=== PATIENT | female | born 1965 ===

== ENCOUNTER 2024-02-29 06:34 | Observation (INO) ==
--- NOTE | 2024-02-01 11:48 | PAT Medication Instructions ---
Medication Instructions Date of Service February 01, 2024 Home Medications alprazolam 1 mg tablet 1 mg PO HS cetirizine 10 mg capsule (Zyrtec) 10 mg PO DAILY PRN Allergy Symptoms levothyroxine 175 mcg tablet 175 mcg PO QAM pravastatin 20 mg tablet 20 mg PO HS DO NOT take the morning of surgery cetirizine 10 mg capsule (Zyrtec) 10 mg PO DAILY PRN Allergy Symptoms Take morning of surgery With a small sip of water, OTHERWISE NOTHING TO EAT OR DRINK AFTER MIDNIGHT: levothyroxine 175 mcg tablet 175 mcg PO QAM Take evening before surgery alprazolam 1 mg tablet 1 mg PO HS cetirizine 10 mg capsule (Zyrtec) 10 mg PO DAILY PRN Allergy Symptoms (if needed) pravastatin 20 mg tablet 20 mg PO HS Other Notes If you have any questions please call us at [phone] or [phone] or [phone] or [phone]
--- NOTE | 2024-02-02 14:13 | Anesthesiology Consultation ---
Date of Service February 02, 2024 Assessment & Plan (1) Encounter for pre-operative examination: - Check BSG AM DOS (glucose elevated at 156 on preop labs. No noted hx of diabetes/prediabetes per patient- will recheck BSG level DOS) - Infectious disease screening: Per assessment on 02/01/24: No known infectious disease contacts or current infectious disease symptoms. No noted recent Covid positive test result. - Outpatient joint assessment: Pt currently scheduled for inpatient pathway. If surgeon requests review for outpatient joint pathway, patient is an acceptable candidate for outpatient joint program from anesthesia standpoint pending surgeon's office assessment that patient is motivated, has good support and completes Same Day Joint Program preop requirements. - Patient acceptable risk for surgery pending surgeon-ordered PCP preop evaluation (Dr. Gaye Amin, appt 02/06). Chart Review Chart Review: Patient seen in Pre Admission Testing Teaching & Discussion Pre-Anesthesia Teaching/Discussion Notes: Instructed NPO after midnight before surgery,except medications with 15 cc of water. Medication instructions provided according to the PAT guidelines. History Surgery Operation Date: 02/29/24 10:20 Proposed Procedures p Left Total Knee Arthroplasty - Dereje Lott MD Height/Weight Height: 5 ft 9 in Weight: 72.7 kg Allergies Allergy/AdvReac Type Severity Reaction Status Date / Time adhesive Allergy Unknown Redness of Verified 02/01/24 11:09 Skin fluconazole [From Diflucan] Allergy Unknown Hives Verified 02/01/24 11:02 nitrofurantoin Allergy Unknown Hives Verified 02/01/24 11:02 [From Macrobid] Sulfa (Sulfonamide Allergy Unknown Rash Verified 02/01/24 11:03 Antibiotics) acetaminophen AdvReac Unknown "skin Verified 02/01/24 11:03 [From Tylenol-Codeine] crawls" codeine AdvReac Unknown "skin Verified 02/01/24 11:03 [From Tylenol-Codeine] crawls" Medications Home Medications Medication Instructions Recorded Confirmed Last Taken alprazolam 1 mg tablet 1 mg PO HS 02/01/24 02/01/24 Unknown cetirizine 10 mg capsule (Zyrtec) 10 mg PO DAILY PRN Allergy Symptoms 02/01/24 02/01/24 Unknown levothyroxine 175 mcg tablet 175 mcg PO QAM 02/01/24 02/01/24 Unknown pravastatin 20 mg tablet 20 mg PO HS 02/01/24 02/01/24 Unknown Past Medical History Medical History Anxiety High cholesterol History of COVID-19 2021- resolved Hypothyroidism Exercise / Class Metabolic Activity II 4-5 Yardwork/Stairs/Walk up hill (one FS: No CP, no SOB) Past Surgical History Surgical History History of medial meniscus repair of right knee Hx of breast biopsy Hx of cholecystectomy Hx of tonsillectomy Hx of tubal ligation Hx of wisdom tooth extraction Nausea and vomiting after administration of anesthetic agent Past Anesthesia History No Family Hx of Anesthesia Complications (Patient adopted- unknown family hx) and Other (Slow to wake) History of PONV No Hx of Motion Sickness and History of PONV (*Dry heaves*) Social History Smoking Status: Never smoker Do You Dip or Chew Tobacco: No Hx Alcohol Use: Yes alcohol intake frequency: holidays/special occasions only Hx Substance Use: No substance use type: does not use Review of Systems Patient denies chest pain, shortness of breath, dyspnea on exertion, fever, chills, cough, wheezing, palpitations. Physical Exam Vital Signs BP 127/87 P 86 TEMP 98.1 SP02 98 RESP 16 Physical Full cervical extension range of motion. Full TMJ range of motion. TMD 3 finger breaths Mallampati Score 2 Dentition: missing molars, + crown Lungs: clear throughout to auscultation Cardiac: regular rate and rhythm, no murmurs noted Spine: normal Carotid arteries: negative bruit Extremities: no LE edema Lab Results Anesthesia Preop Results Results Anesthesia Widget: WBC 6.69 K/ul (4.8-10.8) 02/02/24 Hgb 14.7 g/dl (12.0-16.0) 02/02/24 Hct 43.4 % (37.0-47.0) 02/02/24 Plt 222 K/uL (130-400) 02/02/24 Na 138 mmol/L (136-145) 02/02/24 K 5.0 mmol/L (3.5-5.1) 02/02/24 Cl 102 mmol/L (98-107) 02/02/24 CO2 31 mmol/L (21-32) 02/02/24 BUN 16 mg/dl (6-23) 02/02/24 Creat 0.95 mg/dl (0.6-1.2) 02/02/24 Glucose Level 156 mg/dl (70-99(Fasting)) H 02/02/24 PT 10.9 Seconds (9.0-12.0) 02/02/24 PTT 26 Seconds (21-31) 02/02/24 INR 1.0 (0.9-1.1) 02/02/24 Blood Type A Positive 02/02/24 Antibody Screen NEGATIVE 02/02/24 Testing Laboratory Results TSH (01/19/24) 47.000 [reference range 0.410-4.670] Free T4 (01/19/24) 0.70 [reference range 0.71-1.85] *Patient states that PCP reviewed these labs and contacted her to discuss further. Determined that patient was not taking levothyroxine at correct time of day or with correct food/drink timing. Has since adjusted timing of taking Levothyroxine. No thyroid-related symptoms noted at PAT visit 02/02/24* Electrocardiogram Date: 02/02/24 NSR at 76bpm. "Normal ECG" Chest X-Ray Date: 02/02/24 FINDINGS: PA and lateral chest radiographs are obtained. No prior studies are available for comparison at the time of dictation. The cardiomediastinal silhouette is unremarkable. The lungs and pleural spaces are clear. There is no pneumothorax. The bony thorax appears intact. Cholecystectomy clips are noted in the right upper quadrant. IMPRESSION: No active disease in the chest.
[~2024-02-29 06:34] MED LIST: ROPIVACAINE 0.5% 5 MG/ML 30 ML VIAL ONE
--- NOTE | 2024-02-29 06:55 | History & Physical Bridge Note ---
Date of Service February 29, 2024 History & Physical Bridge Note I have examined the patient, reviewed the History & Physical and in the interval since the performance of the History & Physical I have noted the following changes of clinical significance: no changes noted. no UTI sxs
[2024-02-29] MEDS: LR 500ML BOLUS, THEN 15ML/HR IV SCH (07:05)
[2024-02-29] MEDS ORDERED: KETOROLAC 30 MG/ML VIAL IV PRN (07:07)
[2024-02-29] MEDS ORDERED: ePHEDrine sulfate 50 MG/ML AMP IV PRN (07:07)
[2024-02-29] MEDS ORDERED: PROMETHAZINE HCL 6.25 MG in SODIUM CHLORIDE 0.9% 50 ML IV PRN (07:07)
[2024-02-29] MEDS ORDERED: HYDROmorphone INJ 1 MG/ML SYRINGE IV PRN ×2 (07:07→12:50)
[2024-02-29] MEDS ORDERED: ATROPINE SULFATE 0.1 MG/ML 10ML SYR IV PRN (07:07)
[2024-02-29] MEDS ORDERED: MIDAZOLAM HCL 1 MG/ML 2ML VIAL ONE ×2 (07:08)
[2024-02-29] MEDS: GABAPENTIN 600 MG DOSE PO SCH (07:10)
[2024-02-29] MEDS: oxyCODONE HCL 10 MG TABCR (OxyCONTIN) PO SCH (07:10)
[2024-02-29] MEDS: traMADol HCL 50 MG TABLET PO SCH (07:10)
[2024-02-29] MEDS: ACETAMINOPHEN 500 MG TAB PO SCH ×2 (07:10→21:11)
[2024-02-29] MEDS: METOCLOPRAMIDE HCL 10 MG TABLET PO SCH (07:10)
[2024-02-29] MEDS: FAMOTIDINE 20 MG TAB PO SCH (07:10)
[2024-02-29] MEDS: CeleBREX 200 MG CAP PO SCH (07:11)
[2024-02-29] MEDS: LR 60ML/HR IV SCH (07:11)
[2024-02-29] MEDS: dexAMETHasone**PF** 10 MG/ML VIAL IV SCH (07:12)
[2024-02-29] MEDS ORDERED: BUPIVACAINE 0.5 % 5 MG/1 ML PF 10ML VIAL ONE (07:26)
[2024-02-29] MEDS: TRANEXAMIC ACID / 0.7% NACL 1,000 MG/100 ML BAG IV SCH ×2 (07:32→17:15)
[2024-02-29] MEDS: ceFAZolin 2000MG 2,000 MG/15 ML SYR IV SCH ×2 (08:12→18:33)
[2024-02-29] MEDS ORDERED: PROPOFOL IV EMULSION 10 MG/ML 20 ML VIAL IV ONE ×3 (08:33→09:55)
[2024-02-29] MEDS ORDERED: ONDANSETRON INJ 2 MG/ML 2 ML VIAL ONE (08:33)
[2024-02-29] MEDS: ORTHO JOINT ANESTHETIC ONE (08:56)
--- OUTSIDE RECORDS SUMMARY | 2024-02-29 09:13 | External Medical Summary | Continuity of Care Document ---
Author Name Unknown Organization [place] [id number] Address [address] [place] [id number] Care Team Providers Care Workers' Compensation Claims Examiner Name Role Phone DeionurszulaAnoop Primary Care Physician [phone] Encounter [facility] FINR [id number] Date(s): 02/02/24 - 02/02/[address] [facility] [employer] [address] [place] [id number] [facility] [address] [place] [id number] Encounter Diagnosis Left knee DJD(Discharge Diagnosis) - 02/02/24 S/P total knee arthroplasty(Discharge Diagnosis) - 02/04/24 Discharge Disposition: Home or Self Care Attending Physician: KWAN Cotton, Jessica Damon Referring Physician: MD Oren, Dereje Calderón Allergies, Adverse Reactions, Alerts Substance Reaction Severity Status codeine crawling skin Active sulfa drugs Active Allergy Not found in Search parlodel, pt becomes nause ous Active Medications ALPRAZolam 2 mg oral tablet Start: 07/06/17 16:05:45, 1 tab, PO, bid, Disp# 60 tab, Refills: 5, call or fax to [facility] Start Date: 07/06/17 Status: Ordered levothyroxine 150 mcg (0.15 mg) oral tablet Start: 05/04/16 14:03:04, See Instructions, Disp# 90, Refills: 2, take 1 tablet by mouth once daily, [facility], take 1 tablet by mouth once daily Start Date: 05/04/16 Status: Ordered pravastatin 20 mg oral tablet take 1 tablet by mouth every evening FOR CHOLESTEROL Start Date: 02/02/24 Status: Ordered PriLOSEC 20 mg oral delayed release capsule Start: 01/02/16 17:16:00, 1 cap, PO, Daily, Disp# 30 cap, Refills: 5, Pharmacy: [facility] Start Date: 01/02/16 Status: Ordered Mental Status 02/02/24 Barriers to Learning one year None evide nt Mandatory Health Literacy Documentation Yes Health Literacy Communication Barriers N ever Primary Language Khmer Problem List Condition Confirmation Course Effective Dates Status H ealth Status Informant Anxiety Confirmed Active Degenerative arthritis of knee, bilateral Confirmed Active Lumbar disc displacement without myelopathy 1 Confirmed 2011 Active Enlarged thyroid Confirmed Active Hyperlipidemia Confirmed Active Hypothyroidism Confirmed Active Anemia, iron deficiency Confirmed Active Abnormal mammogram Confirmed Active Chronic insomnia Confirmed Active Post-menopause Confirmed Active Weight disorder Confirmed Active 1L4-5 vertebra out Diagnosis Diagnosis Type Effective Dates Health Status Clinical Service Informant Left knee DJD Discharge Diagnosis 02/02/24 Non-Specified S/P total knee arthroplasty Discharge Diagnosis 02/04/24 Non-Specified Procedures Procedure Date Related Diagnosis Body Site Status Ultrasound of the kidneys 08/03/16 Completed Mammography; unilateral 1 07/23/15 Completed Ultrasound, breast, unilater al, real time with image documentation, including axilla when performed; limited 2 07/23/15 Completed Mammogram 3 07/22/15 Completed Mammogram 4 07/03/13 Completed Papanicolaou smear 5 06/27/13 Comp leted Endometrial biopsy 6 07/30/10 Comp leted Cholecystectomy 2010 Completed Mammogram 7 01/24/09 Completed Cystoscopy and bladder biopsy 2003 Completed Cardiovascular stress test u sing pharmacologic stress agent 8 1999 Com pleted Cystoscopy 1990 Completed Tubal ligation 1988 Completed Extraction of wisdom tooth 1978 Completed Oral frenectomy 1978 Completed Tonsillectomy and adenoidectomy 1974 Completed 1Right breast retroareolar/6:00 defined mass, further assesment with ultrasound as needed. Heterogeneously-dense fibroglandular breast parenchyma, no suspicious microcalcification clusters.. Recommendright breast retroareolar ultrasound. 2Right breast retroareolar/6:00 ultrasound demonstrates minimally complex cystic mass for which six-month follow-up is suggested. 3Right breast retroareolar/6:00-8 cm from nipple define mass for which diagnosit impression mammogram is recommended. 4Baseline examination, without comparision studies. Moderately dense breast parenchymal tissue, NO evidence of malignancy. Benign calcifications. 5WNL 61. Benign early secretory endometrium. 2. Changes suggestive of early polyp formation. 3. Negative for complex hyperplasia or carcinoma. 7Normal-per pt 8negative Vital Signs Most recent to oldest [Reference Range]: 1 Height 174 cm (02/02/24 1:07 PM) Patient Weight 71.6 kg (02/02/24 1:07 PM) Body Mass Index 23.65 kg/m2 (02/02/24 1:07 PM) Temperature [36.5-37.9 DegC] 36.4 DegC *LOW* (02/02/24 1:07 PM) Respiratory Rate 20 br/min (02/02/24 1:07 PM) Blood Pressure 106/60mmHg (02/02/24 1:07 PM) Cuff Pulse Pressure 46 mmHg (02/02/24 1:07 PM) Social History Social History Type Response Smoking Status Never smoked cigaret jeet Sex Female Pre-OP H & P * KWAN Cotton, Jessica R: PERFORM, MODIFY Event Display: Pre-OP H & P Authored Date: [id number] Name:MAYELIN GARCÍA Patient Number:[id number] :1965 Date of Service:02/02/2024 Chief Complaint pre op History of Present Illness [id number] Kisha presents today forpreoperative history and physical. She is scheduled to have a left total knee arthroplasty done by Dr. Lott on February 29, 2024. She has had many years of bilateral knee pain, left more symptomatic than her right. She states in 2018 she developed knee pain and swelling her right knee was diagnosed with a torn meniscus but no specific injury. She had a right knee arthroscopy and partial meniscectomy. She has pain on a daily basis with both of her knees more so the left than the right. Most of her pain is on the inside aspect of the knee. She has no radiation of pain. No new injury. Pain interferes withher activities of daily living. She has pain at rest and occasional night pain. It is hard for her to get comfortable. She states that she is not able to fully straighten her leg and she limps because of this. Previous treatments include cortisone injections 2 times a year for several yearswith temporary relief and a round of viscosupplementation which worsened her knee pain. She does not use an assistive device. She did have physical therapy many years ago and continues to exercise on a daily basis. Aggravating activities include walking is worse with stairs and inclines. Due to her failure of conservative treatment and persistent symptoms and diminishing quality of life she wishes to proceed with an elective total knee arthroplasty. Review of Systems Denies any recent cough, cold, fevers, chills or flulike symptoms. She denies any lightheadedness, dizziness, syncopal episodes, headaches, migraines or seizures. Denies any bleeding or clotting disorders or history of DVT or pulmonary embolism. Denies any recent hospitalizations. Denies any history of metal sensitivity, latex allergy or MRSA. Denies any shortness of breath or chest pain. Denies abdominal pain, heartburn, indigestion, nausea, vomiting, diarrhea or constipation. She has had a recent urinary tract infection. She states that it was probably her "interstitial cystitis acting up". She is currently asymptomatic without any foul-smelling urine, frequency or incontinence. Shehad a urinalysis and urine culture done yesterday due to complete meant of treatment for her recentUTI. Physical Exam Vitals & Measurements T:36.4C RR:20 BP:106/60 SpO2:95% HT:174cm WT:71.6kg WT:71.600kg(Dosing) BMI:23.65 Vitals:Last Updated 02/02/24 13:07 Date Temp BP Location Pulse RR SpO2 Pain 02/02/24 36.4 106/60 20 95 02/02/24 0 01/14/24 5 Height and Weight:Last Updated 02/02/24 13:07 Date BMI Wt(kg) Wt(lb) Method Ht(cm) (ft-in) Method 02/02/24 23.65 71.6 158 Standing Scale 174 5-8 01/14/24 23.65 71.6 158 Standing Scale 174 5-8 07/30/16 28.5 86.5 190 Standing Scale 174.2 5-8 Standing General:Well-dressed, well-nourished. Normal mood and affect. Alert and oriented x3. HEENT:Head: Atraumatic, normocephalic. Eyes: Extraocular movements intact, pupils equal round and reactive to light, sclera normal. Ears: Ears grossly normal, TMs are clear normal light reflex.Nose: Nares are patent bilaterally. Throat: Oropharynx clear mucous membranes moist good dentition uvula midline. Neck:Supple, no lymphadenopathy, nontender palpation, full range of motion. Cardiac:Regular rate and rhythm, normal S1, S2. No murmurs, rubs or gallops appreciated. Lungs:Clear to auscultation bilaterally. No adventitious sounds. No accessory muscle use. Abdomen:Soft, nontender, nondistended, normal bowel sounds heard in all 4 quadrants. Extremities: Focusing on the patient'sbilaterallower extremity: VarusAlignment, right worse than left 1+DP and1+PT pulses Capillary refill less than 2 seconds Sensationintact to light touch Motor strength5/5: Knee flexion and extension/ Ankle plantarflexion and dorsiflexion/ ankle inversion and eversion/ Big toe extension Knee (left)ROM: 0/ 5/ 125 Knee (right) ROM: 0/ 5/ 125 Hip ROM:Painless, bilaterally AbsentEffusion, bilaterally Left knee Ligament exam: LCL 1+ at 20 knee flexion ACLIntact,Endpoint intact PCLIntact,Endpoint intact MCLIntact,Endpoint intact Right knee Ligament exam: ACLIntact,Endpoint intact PCLIntact,Endpoint intact MCLIntact,Endpoint intact trace varus and valgus laxity at 20 PositiveMedial joint line tenderness, left Positive mild Medial joint line tenderness, right Well-healed arthroscopic incisions on the right knee Diagnostic Results I obtained and personally interpreted 4 views of both knees which shows narrowing of medial compartment bilaterally, bone on bone, with varus alignment. Radiographically right worse than left. Bone spurs present bilaterally, more so on the right. No fractures. No bone or soft tissue lesions Assessment/Plan Left knee DJD Patient is scheduled for left total knee arthroplasty with Dr. Lott on February 29, 2024. Risk and complications of the procedure have been explained to the patient and include but are not limited to infection, bleeding, pains, scarring, nerve and blood vessel damage, wound problems, weakness, stiffness, incomplete relief of symptoms, hardware failure, hardware loosening, wear, fracture, tendon or ligament injury, blood clots, embolisms, heart attack, stroke and . All questions were answered and informed consent was obtained. She will have preadmission testing later today in which she will obtain a preoperative CBC, BMP, PT, PTT, type and screen, EKG, chest x-ray and leg lengthx-ray. We did not repeat her urinalysis and urine culture as she did have this performed in her family doctor's office on 02/01/2024. She was instructed on usage of the CHG wipes preoperatively.She was given a prescription for a walker and a cane to use after surgery. She wishes to go home after surgery with home health with a company called [facility]. Postoperative pain medication will be prescribed at time of discharge from the hospital. She was informed that she will be onEliquis 2.5 mg for 2 to 4 weeks after surgery for DVT prophylaxis along with ARLEEN stockings and AV impulse boots while in the hospital. Her home medications were reviewed. She has a family doctor appointment for clearance on February 06. Postoperative course was discussed. She understands and agrees with the plan. All questions were answered today. She knows to call with any further problems, questions or concerns. This chart was completed utilizing geolad voice recognition software. Grammatical errors, random word insertions, pronoun errors, and in complete sentences are an occasional consequence of the system. Any questions or concerns about the content, text, or information contained within the body of this dictation should be addressed directly to the provider for clarification. Problem List/Past Medical History Ongoing Abnormal mammogram Anemia, iron deficiency Anxiety Chronic insomnia Degenerative arthritis of knee, bilateral Enlarged thyroid Hyperlipidemia Hypothyroidism Lumbar disc displacement without myelopathy Post-menopause Weight disorder History of UTI's - most recent in January 2024 Procedure/Surgical History Ultrasound of the kidneys| Service Date: 08/03/2016Ultrasound, breast, unilateral, real time with image documentation, including axilla when performed; limited| Service Date: 07/23/2015Mammography; unilateral| Service Date: 07/23/2015Mammogram| Service Date: 07/22/2015Mammogram| Service Date: 07/03/2013Papanicolaou smear| Service Date: 06/27/2013Endometrial biopsy| Service Date: 07/30/2010Cholecystectomy| Service Date: 2009Mammogram| Service Date: 01/24/2009Cystoscopy and bladder biopsy| Service Date: 2003Cardiovascular stress test using pharmacologic stress agent| Service Date: 1999Cystoscopy| Service Date: 1990Tubal ligation| Service Date: 1988Oral frenectomy| Service Date: 1978Extraction of wisdom tooth| Service Date: 1978Tonsillectomy and adenoidectomy| Service Date: 1973 Medications Home ALPRAZolam(ALPRAZolam 2 mg oral tablet), 2 mg= 1 tab, PO, bid, 5 refills levothyroxine(levothyroxine 150 mcg (0.15 mg) oral tablet), See Instructions, 2 refills omeprazole(PriLOSEC 20 mg oral delayed release capsule), 20 mg= 1 cap, PO, Daily, 5 refills pravastatin(pravastatin 20 mg oral tablet) Allergies Allergy Not found in Searchparlodel, pt becomes nauseous codeinecrawling skin sulfa drugs Macrobid - hives Diflucan - hives Social History Smoking Status Never smoked cigarettes Alcohol Frequency:1-2 times per year Exercise - Does not exercise Home/Environment Lives with:Spouse Substance Abuse - Denies Substance Abuse Tobacco - Denies Tobacco Use Use:Never smoker Family History Patient was adopted Family history is unknown Electronic Signature on File Electronically Reviewed/Signed by: Jessica Cotton PA-C Author Signature Dt/Tm:02/03/2024 08:51AM Division of Sports Medicine Electronically Reviewed/Signed by: Dereje Lott MD Cosigner Signature Dt/Tm: 02/03/2024 02:24 PM Division of Sports Medicine [facility] Patient Care team information Care Team Related Persons Name: FACUNDO GARCÍA Address: [place] [address] [address] [place] [address]
[2024-02-29] MEDS: VANCOMYCIN HCL 1000MG/20ML VIAL ONE (09:44)
[2024-02-29] MEDS: ROPIV 0.5% 246mg, Ketorolac 30mg, EPINEPHrine 0.5mg in NSS INFIL SCH (09:56)
--- NOTE | 2024-02-29 10:37 | Operative Report ---
Post Operative Report Pre & Post Diagnosis Operation Date: 02/29/24 08:00 Pre-Op Diagnosis: Left Knee Degenerative Joint Disease Post-Op Diagnosis: Left Knee Degenerative Joint Disease I identified the patient and participated in the time-out.: Yes Procedure Operation Date: 02/29/24 08:00 Actual Procedures p Left Total Knee Arthroplasty(Left) - Dereje Lott MD Surgeon Dereje Lott MD Auto Inspector Jessica Cotton no resident or fellow available Estimated Blood Loss 5 Findings Consistent with Post-Op Diagnosis Specimens Resected bone and soft tissue left knee Anesthesia Type MAC Spinal Regional Complications none Disposition Accompanied Patient To Recovery: No Disposition: Recovery Room Indications Mary is 58 years old and has severe arthritis of her left knee refractory to nonsurgical treatment. She wishes to have her knee replaced. Description of Procedure Informed consent. Patient identified. She identified the operative site as the left knee which I marked with my initials. A preoperative surgical timeout was performed and a preop dose of IV antibiotics were given. She was taken to the OR positioned supine on the operating room table. Anesthetic was administered. A tourniquet was applied to the left thigh and a padded bump was placed under the left calf and a bump under the left hip. The leg was prepped and draped in usual sterile fashion. DVT prophylaxis intraoperatively with foot pumps. Postop mechanical devices early mobility and Eliquis. The exam under anesthesia revealed a fixed varus deformity without effusion. Range of motion 0/5/125. There was trace MCL laxity at 20 degrees of knee flexion and 1+ LCL laxity at the same location. The knee was otherwise stable. There is no laxity to varus and valgus stress at full extension. TXA given. Limb exsanguinated with the Esmarch. Tourniquet plated 250 mmHg. A midline longitudinal incision was made followed by a medial parapatellar arthrotomy. The retropatellar fat pad was resected. The soft tissue on the anterior aspect of the distal femur was released. A medial release was performed. The patella was then everted and the knee was flexed. ACL was diminutive. The cruciates were removed along with the notch osteophyte. Marginal osteophytes around the knee were removed. The medial meniscus was deficient and it was removed. There were grade 4 changes throughout the weightbearing area of the medial femoral condyle and medial tibial plateau. There was grade 2 and 3 chondrosis diffusely of the trochlea and patella. The lateral compartment was relatively preserved but did have some bone spurs. The lateral meniscus was intact. The cruciate ligaments and the menisci remnants were resected. A airplane pilot supervisor hole was drilled into the proximal tibia just in front of and between the tibial spines. This was followed by the insertion of the intramedullary alignment may. The guide was set to take 10 mm off the lateral side corresponding to a 4 mm cut medially. This was aligned to the tibial tubercle. The extra medullary alignment may was applied with the knee in extension. This confirmed 3 degrees of slope and bisected the ankle joint intersecting the second ray. This cut was made and sized to a 5. Marginal osteophytes throughout the knee were debrided. I then drilled a airplane pilot supervisor hole into the distal femur just above the PCL femoral o rigin. The intramedullary alignment may was inserted set at 60 degrees left knee valgus 11 mm thick cut because of the flexion contracture. The block was pinned in the place and that cut was made. The extension gap was asymmetric 8. The epicondylar axis was marked out. The distal femoral sizing block was applied and sized to a 5. The pins were drilled and the box was dropped into place. The alignment matched the epicondylar axis. The flexion gap was rectangular. This cut was made with a minor 2 mm notch of the anterior femoral cortex. The bone fragments were removed. Osteophytes in the back of the knee were also removed. I then assessed flexion and extension gaps again. The flexion gap was a loose 8 more like a 10. I went ahead and released more medially and posterior medially and resected posterior medial osteophytes all the way around the posterior medial corner and had a symmetric 10 flexion and extension gap. The box cutting guide was applied lateralized and pinned in the place. Cut was made. The femoral trial was inserted and the lug holes were drilled. The tibia was exposed and prepared with the keel and punch. Trialing with the 8 showed mid position laxity and a trace bit of hyperextension. The tendon showed full extension good laxity profile in mid position and only trace bit of laxity laterally at 90 degrees. Attention was turned to the patella which measured about 22-1/2 mm in thickness. The guide was set to preserve 14 mm of bone. The cutting guide was applied and the cut was made. The residual patellar thickness was 13-1/2. The 35 patella was selected and oriented to the knee with the patella and its [place] position and the knee slightly flexed. This was oriented for coverage of the bone and the lug holes were drilled. Patellar tracking was fine with the no hands technique. The components were removed. The tibial canal was plugged. The bony surfaces were meticulously prepared with pulsatile lavage and dried. Ortho joint mix was injected into the back of the knee. 2 bags of Simplex P cement were mixed and then while in a doughy state the components were cemented into place femur tibia and patella. Smears were placed on the posterior condyles. The knee was then held in full extension until the cemented hardened. Extraneous cement was removed as encountered. The tourniquet was then let down after 84 minutes of inflation. Meticulous hemostasis was performed with electrocautery. There was minimal bleeding. At this time we had trialed with the 8 which showed a slight bit of hyperextension. I then went ahead and put the 10 spacer and. There was full extension without hyperextension. There was trace MCL laxity at 20 degrees of flexion which was improved compared to the 8 spacer and 1+ LCL laxity. At 90 degrees of flexion there was no MCL laxity and trace LCL laxity. The knee was subluxated and the final 10 mm thick rotating platform polyethylene spacer was inserted after inspecting the back of the knee for cement. There was an avulsion of the posterolateral osteophyte which I removed. Composite patellar thickness was [address] [place] assisted flexion with extensor mechanism closed was 125 degrees. Copious irrigation was performed. The soft tissues were kept moist throughout the surgical procedure. While the cement was hardening the remainder the Ortho joint mix was injected into the knee. The extensor mechanism was closed above the equator the patella with interrupted #2 FiberWire and below the equator the patella with running and interrupted #1 Vicryl. The skin was then closed in layers with 0 and 2-0 Vicryl followed by tom on the skin. The leg was cleaned with wet and dry sponges and a soft roll dressing was applied Xeroform 4 x 4's ABD soft wrap Dawson wrap. Patient was sent to the floor with a knee immobilizer.She was awakened from anesthesia without difficulty and taken to the recovery room in stable condition. The resected bone and soft tissue were sent for specimen. Counts were correct there were no complications and blood loss is estimated to be 5 cc. At the conclusion of the operation spoke to patient's informed of my findings. She will be rehabilitated according to the standard total knee rehab protocol. She may weight-bear as tolerated. Eliquis will begin the morning after surgery. The components inserted were the J&J attune knee a 35 patella a size 5 mobile- bearing keeled tibial tray with a size 5 left posterior stabilized femur and a size 5 x 10 mm thick posterior stabilized polyethylene insert I attest to the content of the Intraoperative Record and any orders documented therein. Any exceptions are noted below.
--- NOTE | 2024-02-29 10:44 | Operative Report ---
Post Operative Report Pre & Post Diagnosis Operation Date: 02/29/24 08:00 Pre-Op Diagnosis: Left Knee Degenerative Joint Disease Post-Op Diagnosis: Left Knee Degenerative Joint Disease I identified the patient and participated in the time-out.: Yes Procedure Operation Date: 02/29/24 08:00 Actual Procedures p Left Total Knee Arthroplasty(Left) - Dereje Lott MD Surgeon Dereje Lott M.D. Street Light Repairer Helper Jessica Cotton no resident or fellow available Estimated Blood Loss 5 Findings Consistent with Post-Op Diagnosis DJD left knee Specimens Bone and soft tissue Anesthesia Type MAC Spinal Regional Description of Procedure Patient was taken to the operating room placed under IV sedation with spinal anesthesia and peripheral nerve block. Time out was performed. She was given 2 g of IV Ancef for surgical prophylaxis 1 g of TXA for bleeding prophylaxis. She was prepped and draped in routine sterile fashion. I was present during the entire case, please see Dr. Lott's operative report for further details regarding today's procedure. Patient was awakened and transferred to the recovery room in stable condition. I attest to the content of the Intraoperative Record and any orders documented therein. Any exceptions are noted below.
--- NOTE | 2024-02-29 11:16 | XRay Report ---
XR knee LT 1 or 2V routine HISTORY: 58 years-old Female Surgical Post Op left knee arthroplasty COMPARISON: 02/02/2024 TECHNIQUE: 2 views of the left knee FINDINGS: Total joint arthroplasty with patellar resurfacing. Anterior midline skin tom with expected posto perative soft tissue swelling and deep tissue air. IMPRESSION: Total joint arthroplasty with expected postoperative changes. ACT 112: Negative or not required by law. The above report was generated using voice recognition software. It may contain grammatical, syntax o r spelling errors. Electronically signed by: Mitchell Red M.D. 02/29/2024 11:14 AM
[2024-02-29] MEDS: ONDANSETRON INJ 2 MG/ML 2 ML VIAL IV PRN ×2 (11:43→15:26)
--- NOTE | 2024-02-29 12:03 | Anesthesiology Progress Note ---
Date of Service February 29, 2024 Anesthesia Post Procedure Vital Signs Vital Signs: Temp Pulse Pulse Resp BP BP Pulse Ox 02/29/24 12:00 36.3 C L 68 14 133/79 98 02/29/24 11:50 71 19 136/77 99 02/29/24 11:40 71 15 127/85 99 02/29/24 11:30 68 17 130/80 97 02/29/24 11:20 80 19 129/90 97 02/29/24 11:10 63 17 120/69 97 02/29/24 11:00 64 12 117/67 96 02/29/24 10:50 78 13 121/69 96 02/29/24 10:44 36.3 C L 76 18 117/67 95 02/29/24 06:56 36.5 C 75 20 151/86 H 99 O2 Del Method 02/29/24 12:00 Room Air 02/29/24 11:50 Room Air 02/29/24 11:40 Room Air 02/29/24 11:30 Room Air 02/29/24 11:20 Room Air 02/29/24 11:10 Room Air 02/29/24 11:00 Room Air 02/29/24 10:50 Room Air 02/29/24 10:44 Room Air 02/29/24 06:56 Room Air Transfer of Care Handoff Completed per policy Notes Mental Status: alert / awake / arousable Patient Amnestic to Procedure: Yes Nausea / Vomiting: adequately controlled Pain: adequately controlled Airway Patency, RR, SpO2: stable & adequate BP & HR: stable & adequate Hydration State: stable & adequate Neuraxial Anesthesia: was administered and sensory block is resolving Anesthetic Complications: no major complications apparent
[2024-02-29] MEDS ORDERED: bisacodyL 10 MG SUPP PR PRN (12:50)
[2024-02-29] MEDS ORDERED: MAGNESIUM HYDROXIDE SUSP 30 ML UDC PO PRN (12:50)
[2024-02-29] MEDS ORDERED: NALOXONE HCL 0.4 MG/1 ML VIAL/CARP IV PRN (12:50)
[2024-02-29] MEDS ORDERED: diphenhydrAMINE 50 MG/ML VIAL IV PRN (12:50)
[2024-02-29] MEDS ORDERED: hydrALAZINE HCL 20 MG/ML VIAL IV PRN (12:50)
[2024-02-29] MEDS ORDERED: HYDROmorphone INJ 0.5 MG/0.5 ML SYR IV PRN (12:50)
[2024-02-29] MEDS ORDERED: CETIRIZINE HCL 10 MG TABLET PO PRN (13:03)
[2024-02-29] MEDS: KETOROLAC TROMETHAMINE 15 MG/ML VIAL IV SCH (14:09)
[2024-02-29] MEDS: SODIUM CHLORIDE 0.9% 1,000 ML IV SCH (14:09)
[2024-02-29] MEDS: traMADol HCL 50 MG TABLET PO PRN (16:17)
[2024-02-29] MEDS: METOCLOPRAMIDE HCL INJ 5 MG/ML 2 ML VIAL IV PRN (17:51)
--- NOTE | 2024-02-29 19:43 | Orthopedic Progress Note ---
Date of Service February 29, 2024 Assessment & Plan (1) Status post knee replacement: Plan: Doing well. X-rays show good positioning of the components no evidence of complication. She is stable postoperatively. Blood thinners in the morning. PT and OT. Postop antibiotics. Rest ice and elevation. Pain control Admission and Anticipated Discharge Date Admission Date: February 29, 2024 Subjective Some nausea and vomiting. Earlier today but doing better. Some pain but well- managed. Results of surgery discussed. Physical Exam Physical Exam: DP and PT pulses are 1+ sensation intact 5 out of 5 ankle and toe plantarflexion dorsiflexion inversion and eversion strength. Dressing clean and dry. I elevated the foot on 2 pillows. Results & Data Vital Signs (Past 12 Hours) Vital Signs Temp Pulse Pulse Resp BP Pulse Ox O2 Del Method 02/29/24 19:38 36.6 C 63 18 120/70 99 Room Air 02/29/24 15:45 Room Air 02/29/24 15:03 36.6 C 71 16 132/65 98 Room Air 02/29/24 14:13 66 16 139/75 98 Room Air 02/29/24 13:11 62 16 122/73 96 Room Air 02/29/24 12:42 66 16 123/71 98 Room Air 02/29/24 12:15 36.3 C L 68 16 131/70 98 Room Air 02/29/24 12:00 36.3 C L 68 14 133/79 98 Room Air 02/29/24 11:50 71 19 136/77 99 Room Air 02/29/24 11:40 71 15 127/85 99 Room Air 02/29/24 11:30 68 17 130/80 97 Room Air 02/29/24 11:20 80 19 129/90 97 Room Air 02/29/24 11:10 63 17 120/69 97 Room Air 02/29/24 11:00 64 12 117/67 96 Room Air 02/29/24 10:50 78 13 121/69 96 Room Air 02/29/24 10:44 36.3 C L 76 18 117/67 95 Room Air
[2024-02-29] MEDS: PRAVASTATIN SOD 20 MG TAB PO SCH (20:13)
[2024-02-29] MEDS: SENNA 8.6 MG TAB PO SCH (20:13)
[2024-02-29] MEDS: DOCUSATE SODIUM 100 MG CAP PO SCH (20:13)
[2024-02-29] MEDS: ALPRAZolam 0.5 MG TABLET PO SCH (20:16)
[2024-03-01] MEDS: LEVOTHYROXINE SODIUM 175 MCG TABLET PO SCH (05:44)
[2024-03-01] MEDS: oxyCODONE HCL IR 5 MG TAB (IMMEDIATE RELEASE) PO PRN (05:47)
[2024-03-01 08:24] LABS: Hematocrit (blood only) 34.4 % (37.0-47.0); Hemoglobin 11.5 g/dl (12.0-16.0); Mean Corpuscular Hgb Conc 33.4 g/dL (32.0-36.0); Mean Corpuscular Volume 86.9 fL (80.0-100.0); Mean Platelet Volume 10.2 fL (9.4-12.4); Platelet Count 180 K/uL (130-400); RDW Coefficient of Variation 12.5 % (11.5-14.5); RDW Standard Deviation 39.9 fL (36.4-46.3); Red Blood Count 3.96 M/uL (4.20-5.40); White Blood Count 12.69 K/ul (4.8-10.8)
[2024-03-01] MEDS: MULTIVITAMIN TAB PO SCH (08:39)
[2024-03-01] MEDS: APIXABAN 2.5 MG TAB PO SCH (08:39)
[2024-03-01] MEDS: dexAMETHasone 4 MG TAB PO SCH (08:39)
[2024-03-01 08:44] LABS: BUN Creatinine Ratio 18.4 (10-20); Calcium 9.1 mg/dl (8.6-10.3); Creatinine Clr Calc Pharmacy 83.3 ml/min; Est GFR (African American) 99.5 ml/min; Est GFR (Non-African American) 85.9 ml/min; Potassium 4.6 mmol/L (3.5-5.1)
--- NOTE | 2024-03-01 11:00 | Orthopedic Progress Note ---
Date of Service March 01, 2024 Assessment & Plan (1) Status post knee replacement: Plan: POD 1-left total knee arthroplasty by Dr. Lott on 02/29/2024 Home medications were continued. She may be out of bed, weight-bear as tolerated on left lower extremity with the assistance of a knee immobilizer for 2 to 4 days and a walker. PT and OT to start today. Eliquis 2.5 mg p.o. twice daily for DVT prophylaxis. Started this morning. Also ARLEEN stockings and AV impulse boots while inpatient. Case management for disposition. Home health has been arranged. We will use Reglan for nausea. She requested prescription be sent to her pharmacy for at home use. Elevate and ice as needed for swelling of the left leg. Discharge instructions were reviewed. All questions were answered. She will be discharged to home with home health today. Admission and Anticipated Discharge Date Admission Date: February 29, 2024 Subjective Patient resting in bed. States that she has had some nausea this morning. Reglan helped. She was unable to participate in therapy this morning due to the nausea but feels better now. Her is at bedside. Denies any lightheadedness or dizziness. Denies any chest pain or shortness of breath. Denies any significant pain in her left knee. She does think that the nausea is from the oxycodone. She tolerated tramadol yesterday. Review of Systems Review of Systems: As per HPI. Physical Exam Musculoskeletal: Exam of her left lower extremity: Her knee immobilizer is in place. This was opened and the dressings are clean, dry and intact. Ankle range of motion is full. Normal strength of the left ankle. Dorsalis pedis and posterior tibial pulses are 1+. Sensation is normal. Tolerates logrolling of the left hip. No significant edema. Calf is supple and nontender. Results & Data Vital Signs (Past 12 Hours) Vital Signs Temp Pulse Pulse Resp BP Pulse Ox O2 Del Method 03/01/24 07:42 36.4 C L 59 L 18 108/67 97 Room Air 03/01/24 04:19 36.6 C 68 18 122/71 97 Room Air 02/29/24 23:07 36.9 C 67 18 113/71 96 Room Air Laboratory Results 03/01/24 Range/Units 07:47 WBC 12.69 H (4.8-10.8) K/ul RBC 3.96 L (4.20-5.40) M/uL Hgb 11.5 L (12.0-16.0) g/dl Hct 34.4 L (37.0-47.0) % MCV 86.9 (80.0-100.0) fL MCH 29.0 (25.0-34.0) pg MCHC 33.4 (32.0-36.0) g/dL RDW Std Deviation 39.9 (36.4-46.3) fL RDW Coeff of Hector 12.5 (11.5-14.5) % Plt Count 180 (130-400) K/uL MPV 10.2 (9.4-12.4) fL Sodium 137 (136-145) mmol/L Potassium 4.6 (3.5-5.1) mmol/L Chloride 105 (98-107) mmol/L Carbon Dioxide 26 (21-32) mmol/L Anion Gap 6 (3-11) BUN 14 (6-23) mg/dl Creatinine 0.76 (0.6-1.2) mg/dl Est Cr Clr Drug Dosing 83.3 ml/min Est GFR ( Amer) 99.5 ml/min Est GFR (Non-Af Amer) 85.9 ml/min BUN/Creatinine Ratio 18.4 (10-20) Glucose 104 H (70-99(Fasting)) mg/dl Calcium 9.1 (8.6-10.3) mg/dl Diagnostic Findings XR knee LT 1 or 2V routine HISTORY: 58 years-old Female Surgical Post Op left knee arthroplasty COMPARISON: 02/02/2024 TECHNIQUE: 2 views of the left knee FINDINGS: Total joint arthroplasty with patellar resurfacing. Anterior midline skin tom with expected postoperative soft tissue swelling and deep tissue air. IMPRESSION: Total joint arthroplasty with expected postoperative changes.
--- NOTE | 2024-03-01 11:13 | Discharge Summary ---
Date of Service March 01, 2024 Discharge Data Procedures Performed Operation Date: 02/29/24 08:00 Actual Procedures p Left Total Knee Arthroplasty(Left) - Dereje Lott MD Hospital Course (1) Status post knee replacement: Patient was kept in observation at [facility] after undergoing an elective left total knee arthroplasty with Dr. Lott on February 29, 2024. Her surgery was performed with spinal anesthesia, IV sedation and peripheral nerve block. She tolerated the procedure well without any intraoperative complications. She was given 2 g of IV Ancef for surgical prophylaxis, which was continued for 24 hours after surgery. She was given 1 g of IV TXA preoperatively for bleeding prophylaxis. She was given a second dose 6 hours after that initial dose. She may be out of bed, weight-bear as tolerated right lower extremity with the assistance of a walker. She was instructed to use his knee immobilizer for 2 days after surgery. X-rays in the recovery room of her left knee showed a stable left knee joint prosthesis with no evidence of hardware complication or fracture. Pain medications consisted of Tylenol, oxycodone, tramadol and IV Dilaudid. She did develop some post operative nausea with pain medication usage. Reglan and zofran were given and helped make it more tolerable. She was given a bowel regimen. Her home medications were continued. Physical therapy and Occupational Therapy were consulted and she was seen on postoperative day 1. She did well out of bed with ambulation and ADLs and was deemed safe for discharge to home. Her pain was well-controlled during her inpatient stay. She was started on Eliquis 2.5 mg p.o. twice daily on postoperative day 1 and this will be continued for 2 to 4 weeks after surgery. She was also provided ARLEEN stockings and AV impulse boots during her inpatient stay. She did not develop any postoperative complications during his inpatient stay. On postoperative day 1 doing very well and was deemed safe for discharge to her home. She was discharged to her home in stable condition with family, home health arrangements have been made. She will follow-up as an outpatient as scheduled.
== END 2024-03-01 15:43 | disposition home health service (06) ==
LOC: ASU 06:34 → 3N 06:34
DX: Z88.5 Allergy status to narcotic agent; Z88.6 Allergy status to analgesic agent; Z79.899 Other long term (current) drug therapy; Z88.8 Allergy status to other drugs, medicaments and biological substances; M17.12 Unilateral primary osteoarthritis, left knee; Z79.890 Hormone replacement therapy; Z88.2 Allergy status to sulfonamides

== ENCOUNTER 2024-10-17 05:07 | Observation (INO) ==
--- NOTE | 2024-10-02 15:10 | Anesthesiology Consultation ---
Date of Service October 02, 2024 Assessment & Plan (1) Encounter for pre-operative examination: - check BSG am DOS. - s/p left TKA 02/29/24 SAB L3-L4 1 attempt + PNB. - Outpatient joint assessment: Patient is currently scheduled for inpatient pathway. If re-evaluated and patient/surgeon requests outpatient pathway per 02/02/24 review, patient is acceptable candidate for outpatient joint program from anesthesia standpoint pending surgeon's office assessment of pt motivation/support/completion of same day joint program preop requirements. - Per blow up operator on 10/02/24: No known infectious disease contacts, current infectious disease symptoms in past 10 days or COVID positive test result in the past 30 days. Chart Review Chart Review: Acceptable Risk for Surgery and Patient NOT seen in Pre Admission Testing History Surgery Operation Date: 10/17/24 07:00 Proposed Procedures p Right Total Knee Arthroplasty - Dereje Lott MD Height/Weight Height: 5 ft 9 in Weight: 70.76 kg Allergies Allergy/AdvReac Type Severity Reaction Status Date / Time adhesive Allergy Unknown Redness of Verified 10/02/24 14:43 Skin fluconazole [From Diflucan] Allergy Unknown Hives Verified 10/02/24 14:43 nitrofurantoin Allergy Unknown Hives Verified 10/02/24 14:43 [From Macrobid] Sulfa (Sulfonamide Allergy Unknown Rash Verified 10/02/24 14:43 Antibiotics) codeine AdvReac Unknown "skin Verified 10/02/24 14:43 [From Tylenol-Codeine] crawls" Medications Home Medications Medication Instructions Recorded Confirmed Last Taken alprazolam 1 mg tablet 1 mg PO HS 02/01/24 10/02/24 02/28/24 19:15 cetirizine 10 mg capsule (Zyrtec) 10 mg PO DAILY PRN Allergy Symptoms 02/01/24 10/02/24 Unknown levothyroxine 175 mcg tablet 175 mcg PO QAM 02/01/24 10/02/24 02/28/24 03:00 Past Medical History Medical History Anxiety High cholesterol no current medications. History of COVID-19 2021- resolved Hypothyroidism Past Family History Family History Other No family history of adverse response to anesthesia Past Surgical History Surgical History History of medial meniscus repair of right knee History of total left knee replacement Hx of breast biopsy Hx of cholecystectomy Hx of tonsillectomy Hx of tubal ligation Hx of wisdom tooth extraction Nausea and vomiting after administration of anesthetic agent severe PONV, heightened smell sensitivity - denies motion sickness. Social History Smoking Status: Never smoker Do You Dip or Chew Tobacco: No Hx Alcohol Use: Yes alcohol intake frequency: holidays/special occasions only Hx Substance Use: No substance use type: does not use Lab Results Anesthesia Preop Results Results Anesthesia Widget: WBC 4.36 K/ul (4.8-10.8) L 09/25/24 Hgb 15.1 g/dl (12.0-16.0) 09/25/24 Hct 45.1 % (37.0-47.0) 09/25/24 Plt 218 K/uL (130-400) 09/25/24 Na 141 mmol/L (136-145) 09/25/24 K 4.8 mmol/L (3.5-5.1) 09/25/24 Cl 106 mmol/L (98-107) 09/25/24 CO2 29 mmol/L (21-32) 09/25/24 BUN 15 mg/dl (6-23) 09/25/24 Creat 0.86 mg/dl (0.6-1.2) 09/25/24 Glucose Level 105 mg/dl (70-99(Fasting)) H 09/25/24 PT 10.6 Seconds (9.0-12.0) 09/25/24 PTT 26 Seconds (21-31) 09/25/24 INR 1.0 (0.9-1.1) 09/25/24 Blood Type A Positive 09/25/24 Antibody Screen NEGATIVE 09/25/24 Testing Electrocardiogram Date: 02/02/24 NSR, rate 76 bpm Chest X-Ray Date: 02/02/24 No active disease in the chest.
[2024-10-17] MEDS: ACETAMINOPHEN 500 MG TAB PO SCH ×2 (05:55→14:07)
[2024-10-17] MEDS: CeleBREX 200 MG CAP PO SCH (05:55)
[2024-10-17] MEDS: dexAMETHasone**PF** 10 MG/ML VIAL IV SCH (05:55)
[2024-10-17] MEDS: LR 60ML/HR IV SCH (05:56)
[2024-10-17] MEDS: oxyCODONE HCL 10 MG TABCR (OxyCONTIN) PO SCH (05:56)
[2024-10-17] MEDS: FAMOTIDINE 20 MG TAB PO SCH (05:56)
[2024-10-17] MEDS: GABAPENTIN 600 MG DOSE PO SCH (05:56)
[2024-10-17] MEDS: METOCLOPRAMIDE HCL 10 MG TABLET PO SCH (05:56)
[2024-10-17] MEDS: traMADol HCL 50 MG TABLET PO SCH (05:56)
[2024-10-17] MEDS: SODIUM CHLORIDE 0.9% 1,000 ML IV SCH (05:57)
[2024-10-17] MEDS ORDERED: LR 500ML BOLUS, THEN 15ML/HR IV SCH (06:00)
[2024-10-17] MEDS ORDERED: BUPIVACAINE 0.25% PF 30 ML VIAL ONE (06:26)
[2024-10-17] MEDS ORDERED: BUPIVACAINE 0.5 % 5 MG/1 ML PF 10ML VIAL ONE (06:26)
[2024-10-17] MEDS ORDERED: ONDANSETRON INJ 2 MG/ML 2 ML VIAL ONE (06:37)
[2024-10-17] MEDS ORDERED: PROPOFOL IV EMULSION 10 MG/ML 20 ML VIAL IV ONE ×2 (06:37→07:20)
[2024-10-17] MEDS ORDERED: DEXAMETHASONE SOD INJ 4 MG/ML VIAL ONE (06:37)
[2024-10-17] MEDS ORDERED: PHENYLEPHRINE 100MCG/ML 5ML SYR ONE (06:37)
[2024-10-17] MEDS ORDERED: MIDAZOLAM HCL 1 MG/ML 2ML VIAL ONE (06:38)
[2024-10-17] MEDS: TRANEXAMIC ACID 1,000 MG **IV Pre-op IV SCH (06:51)
--- NOTE | 2024-10-17 07:01 | History & Physical Bridge Note ---
Date of Service October 17, 2024 History & Physical Bridge Note I have examined the patient, reviewed the History & Physical and in the interval since the performance of the History & Physical I have noted the following changes of clinical significance: no changes noted
[2024-10-17] MEDS: SCOPOLAMINE 1 MG/72 HR TDSY PATCH TD ONE (07:03)
[2024-10-17] MEDS: ceFAZolin 2000MG 2,000 MG/15 ML SYR IV SCH ×2 (07:06→15:45)
[2024-10-17] MEDS ORDERED: PROMETHAZINE HCL 6.25 MG in SODIUM CHLORIDE 0.9% 50 ML IV PRN (07:17)
[2024-10-17] MEDS ORDERED: ONDANSETRON INJ 2 MG/ML 2 ML VIAL IV PRN (07:17)
[2024-10-17] MEDS ORDERED: ATROPINE SULFATE 0.1 MG/ML 10ML SYR IV PRN (07:17)
[2024-10-17] MEDS ORDERED: ePHEDrine sulfate 50 MG/ML AMP IV PRN (07:17)
[2024-10-17] MEDS ORDERED: KETAMINE HCL 10MG/ML SYR ONE (07:47)
[2024-10-17] MEDS: ORTHO JOINT ANESTHETIC ONE (07:50)
[2024-10-17] MEDS: VANCOMYCIN HCL 1000MG/20ML VIAL ONE (08:59)
[2024-10-17] MEDS: ROPIV 0.5% 246mg, Ketorolac 30mg, EPINEPHrine 0.5mg in NSS INFIL SCH (09:00)
--- NOTE | 2024-10-17 09:45 | Operative Report ---
Post Operative Report Pre & Post Diagnosis Operation Date: 10/17/24 07:00 Pre-Op Diagnosis: Right Knee Degenerative Joint Disease Post-Op Diagnosis: Right Knee Degenerative Joint Disease I identified the patient and participated in the time-out.: Yes Procedure Operation Date: 10/17/24 07:00 Actual Procedures p Right Total Knee Arthroplasty(Right) - Dereje Lott MD Surgeon Dereje Lott MD Meter Shop Supervisor Jessica CARRILLO no resident or fellow available Estimated Blood Loss 5 Findings Consistent with Post-Op Diagnosis Specimens Resected bone and soft tissue of the right knee Anesthesia Type MAC Spinal Regional Complications none Disposition Accompanied Patient To Recovery: No Disposition: Recovery Room Indications Mary is 59 years old and has severe arthritis of her right knee refractory to nonsurgical methods of management. She is status post a successful contralateral knee replacement. Description of Procedure Informed consent. Patient identified. She identified the procedure site as the right knee. I marked with my initials. A preoperative surgical timeout was performed. A preop dose of intravenous antibiotics was performed. She was taken to the operating room positioned supine on the operating room table. The anesthetic was administered. A bump was placed under the right hip and a padded post under the right calf. A tourniquet was applied to the right thigh. The leg was prepped and draped in the usual sterile fashion. DVT prophylaxis intraoperatively with mechanical devices on the nonoperative leg. Postop mechanical devices chemoprophylaxis and early mobility. The examination under anesthesia revealed a fixed varus deformity of about 5 degrees with a 7 to 10 degree flexion contracture and flexion of the knee 220 degrees. Her knee was stable to varus and valgus stress with intact Uzair and posterior drawer. At 20 degrees knee flexion she had 1+ LCL laxity. There is no effusion. There were prior healed arthroscopic portals present. TXA given. Limb exsanguinated with the Esmarch. Tourniquet inflated to 250 mmHg. A midline longitudinal incision was made followed by medial parapatellar arthrotomy. Soft tissue of the retropatellar fat pad was removed. Soft tissue on the anterior aspect the distal femur excised. An extensile medial release was performed. The knee was able to be flexed. Marginal osteophytes were noted throughout the knee mainly in the medial compartment but also around the patella and lateral compartment and removed as encountered. There were grade 3 and 4 changes of the patella. The medial meniscus was deficient. Lateral compartment was relatively normal in terms of cartilage. The medial compartment showed large areas of grade 4 change with bony eburnation. There were large osteophytes especially posteromedially. The meniscal remnants were resected after resecting the notch osteophyte and ACL PCL. The tibia was subluxated. Meniscal remnants were removed. Large posterior medial osteophytes on the tibia were removed and elsewhere as encountered. A bar pilot hole was drilled into the proximal tibia between and in front of the tibial spines. An intramedullary alignment may was introduced. The 3 degree cutting block was aligned to the tibial tubercle and pinned into position. It was set to resect 10 off the lateral side corresponding to a 4 cut medially. The extra medullary alignment may was applied and this demonstrated slight posterior slope and bisected the ankle joint intersecting the second ray. This cut was made and the tibia was sized to a 5. A bar pilot hole was drilled into the distal femur followed by the insertion of the distal femoral cutting guide set at 6 degrees valgus right knee 11 mm thick cut. This cut was made and the extension gap was a symmetric 8 mm. The epicondylar axis was marked out. Distal femoral sizing guide applied. Sized to a 6. Rectangular flexion gap. Pins drilled into place which matched the epicondylar axis. The size 6 anterior down cutting block was hung and pinned into place. The collateral ligaments were protected and the anterior and posterior cuts along with the chamfers were made. Posterior osteophytes on the femur were resected. Balancing then identified 12 mm symmetric flexion and extension gaps. The box cutting guide was applied lateralized and the box cut was made. The trial femur was applied and the lug holes were drilled. The tibia was exposed and it was prepared with the reamer and keel punch. This was done after aligning the x-ray to the lateral border the tibia and the orienting it with the tibial tubercle. Trialing was then performed with 10 and 12 and the 12 gave the best stability and full extension. Attention was turned to the patella. Synovium around the patella and marginal osteophytes were removed. Patellar thickness was 22 mm. The guide was set to preserve 14 mm of bone. A 35 patella was selected. The cut was made. Residual patellar thickness was 13-1/2 mm. The patella trial was aligned to the patella with the knee in the ambler position slightly flexed for orientation. It was oriented for coverage and then the lug holes were drilled. Patellar tracking was fine with no hands technique. The trial components were removed. Tibial canal plug. Ortho joint mix injected into the back of the knee. Copious irrigation was performed throughout the surgical procedure and every effort was made to ensure the soft tissues were kept moist. The bone surfaces were prepared with pulsatile lavage and dried. 2 bags of Simplex P cement without antibiotics were mixed for a minute 30 seconds with vacuum and while in a doughy working state smears were placed on the posterior femoral condyles and then the components were cemented into place fem ur tibia and patella. The knee was held in full extension with a 12 mm spacer until the cemented hardened. At that point the tourniquet was let down and there was minimal bleeding. While the cement was hardening the Ortho joint mix was injected into the knee and irrigation performed. Once the cement had hardened the tourniquet was let down and the patella tracked fine with no hands technique. No lateral release was not needed. The knee had full extension and was stable to varus and valgus. At 20 degrees knee flexion there is trace LCL laxity and slightly more than trace MCL laxity. At 90 degrees of knee flexion there was symmetric no laxity to varus and valgus. Femoral component was lateralized 1 applied. The back the knee was inspected for cement and removed as encountered. No significant bleeding was noted. The knee was irrigated and the final polyethylene was inserted. Half gram of vancomycin was applied deep to the extensor mechanism and half gram above the extensor mechanism. The extensor mechanism was closed above the equator the patella with interrupted #2 FiberWire. Below the equator the patella with running and interrupted #1 Vicryl for a watertight closure. The skin was then closed in layers with 0 and 2-0 Vicryl's. Some 3-0 Vicryl's as well. Anali were applied followed by soft sterile dressing Xeroform 4 x 4's ABD soft wrap full-length Dawson wrap. Patient was sent back to the recovery with a knee immobilizer. Patient was awakened from anesthesia without difficulty and taken to the recovery room in stable condition. Resected bone and soft tissue were sent for specimen. There were no complications. Counts were correct and blood loss is estimated to be 5 cc. At the conclusion the operation I spoke the patient's informed him my findings and gave postop instructions. She will rehabilitate according to the standard total knee rehab protocol. Weight-bear as tolerated. The components inserted were the J&J to knee a 35 patella. Composite patellar thickness at the conclusion of the procedure was 23-1/2 mm. Sheffield assisted flexion with extensor mechanism closed was 135 degrees. A size 6 x 12 mm thick polyethylene insert a size 6 posterior stabilized femur right, 5 rotating platform tray. The anesthesiologist has requested that the patient be placed on a heart monitor overnight because of SVTs during surgery. This is thought to possibly be due to propofol. I attest to the content of the Intraoperative Record and any orders documented therein. Any exceptions are noted below.
--- NOTE | 2024-10-17 10:03 | Operative Report ---
Post Operative Report Pre & Post Diagnosis Operation Date: 10/17/24 07:00 Pre-Op Diagnosis: Right Knee Degenerative Joint Disease Post-Op Diagnosis: Right Knee Degenerative Joint Disease I identified the patient and participated in the time-out.: Yes Procedure Operation Date: 10/17/24 07:00 Actual Procedures p Right Total Knee Arthroplasty(Right) - Dereje Lott MD Surgeon Dereje Lott M.D. Liquor Bridge Operator Helper Jessica CARRILLO no resident or fellow available Estimated Blood Loss 5 Findings Consistent with Post-Op Diagnosis Specimens bone and soft tissue Anesthesia Type MAC Spinal Regional Description of Procedure Patient was taken to the operating room and placed under IV sedation with spinal anesthesia. Peripheral nerve block was given preoperatively. She was given 2 g of IV Ancef for surgical prophylaxis. She was given 1 g of IV TXA preoperatively for bleeding prophylaxis. Time out was performed. She was prepped and draped in routine sterile fashion. I was present during the entire case. Please see Dr. Lott's operative report for further details regarding today's procedure. Patient was awakened and transferred to the recovery room in stable condition. Intraoperatively she did develop some SVTs and anesthesia requested that we place her in Medr telemetry postoperatively for monitoring station over the next 24 hours. I attest to the content of the Intraoperative Record and any orders documented therein. Any exceptions are noted below.
--- NOTE | 2024-10-17 10:25 | XRay Report ---
XR knee RT 1 or 2V routine CLINICAL HISTORY: Surgical Post Op TECHNIQUE: 2 views of the right knee were obtained. Comparison: Comparison is made to leg length radiograph 02/02/2024 FINDINGS: Patient is status post total knee arthroplasty with expected postsurgical changes including soft tiss ue swelling and subcutaneous emphysema. No periarticular lucency or hardware fracture is seen. IMPRESSION: Expected postoperative appearance status post placement of total knee arthroplasty. ACT 112: Negative or not required by law. Electronically signed by: Everton Prajapati M.D. 10/17/2024 10:23 AM
--- NOTE | 2024-10-17 10:48 | Anesthesiology Progress Note ---
Date of Service October 17, 2024 Anesthesia Post Procedure Vital Signs Vital Signs: Temp Pulse Resp BP Pulse Ox O2 Del Method O2 Flow Rate 10/17/24 10:40 75 16 141/70 H 97 Room Air 10/17/24 10:30 36.4 C L 75 21 134/72 96 Room Air 10/17/24 10:20 75 15 131/72 97 Room Air 10/17/24 10:10 71 12 138/69 97 Room Air 10/17/24 10:00 81 23 137/72 100 Oxymask 3 10/17/24 09:50 36 C L 80 17 127/67 98 Oxymask 6 10/17/24 05:41 36.6 C 69 20 161/92 H 100 Room Air Pain Intensity Right Knee: Pain Intensity: 2 Transfer of Care Handoff Completed per policy Notes Mental Status: alert / awake / arousable and participated in evaluation Patient Amnestic to Procedure: Yes Nausea / Vomiting: adequately controlled Pain: adequately controlled Airway Patency, RR, SpO2: stable & adequate BP & HR: stable & adequate Hydration State: stable & adequate Neuraxial Anesthesia: was administered and sensory block is resolving Anesthetic Complications: no major complications apparent and Pt Satisfied with anesthetic care
[2024-10-17] MEDS ORDERED: NALOXONE HCL 0.4 MG/1 ML VIAL/CARP IV PRN (11:39)
[2024-10-17] MEDS ORDERED: oxyCODONE HCL IR 5 MG TAB (IMMEDIATE RELEASE) PO PRN (11:39)
[2024-10-17] MEDS ORDERED: diphenhydrAMINE 50 MG/ML VIAL IV PRN (11:39)
[2024-10-17] MEDS ORDERED: MAGNESIUM HYDROXIDE SUSP 30 ML UDC PO PRN (11:39)
[2024-10-17] MEDS ORDERED: HYDROmorphone INJ 1 MG/ML SYRINGE IV PRN (11:39)
[2024-10-17] MEDS ORDERED: bisacodyL 10 MG SUPP PR PRN (11:39)
[2024-10-17] MEDS ORDERED: HYDROmorphone INJ 0.5 MG/0.5 ML SYR IV PRN (11:39)
[2024-10-17] MEDS: KETOROLAC 30 MG/ML VIAL IV SCH (12:56)
--- NOTE | 2024-10-17 15:46 | Orthopedic Progress Note ---
Date of Service October 17, 2024 Assessment & Plan (1) Status post knee replacement: Plan X-rays are reviewed and show good positioning of total knee arthroplasty without complication. She is stable postoperatively. She will be monitored on the telemetry overnight. PT OT. Pain control postop antibiotics. Eliquis starting tonight. Surgical findings and results discussed. Admission and Anticipated Discharge Date Admission Date: October 17, 2024 Subjective Doing well. No chest pain shortness of breath or palpitations. She does not have a history of palpitations. 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 No nausea. Physical Exam Physical Exam: She still has numbness and tingling in her foot. Her DP and PT pulses are 1+ palpable. 5- out of 5 plantarflexion strength but 4 out of 5 strength or less with dorsiflexion inversion eversion. Dressing is clean and dry capillary refill less than 2 seconds. Results & Data Vital Signs (Past 12 Hours) Vital Signs Temp Pulse Pulse Pulse Resp BP BP 10/17/24 15:17 36.5 C 65 16 124/68 10/17/24 14:42 60 10/17/24 14:16 36.6 C 66 16 129/72 10/17/24 12:56 36.2 C L 65 16 130/74 10/17/24 12:28 36.2 C L 65 16 125/73 10/17/24 11:58 72 10/17/24 11:56 36.3 C L 75 16 121/72 10/17/24 11:27 36.3 C L 66 16 128/71 10/17/24 11:13 36.4 C L 67 16 133/75 10/17/24 10:40 75 16 141/70 H 10/17/24 10:30 36.4 C L 75 21 134/72 10/17/24 10:20 75 15 131/72 10/17/24 10:10 71 12 138/69 10/17/24 10:00 81 23 137/72 10/17/24 09:50 36 C L 80 17 127/67 10/17/24 05:41 36.6 C 69 20 161/92 H Pulse Ox O2 Del Method O2 Flow Rate 10/17/24 15:17 98 Room Air 10/17/24 14:42 10/17/24 14:16 96 Room Air 10/17/24 12:56 97 Room Air 10/17/24 12:28 94 Room Air 10/17/24 11:58 10/17/24 11:56 94 Room Air 10/17/24 11:27 98 Room Air 10/17/24 11:13 97 Room Air 10/17/24 10:40 97 Room Air 10/17/24 10:30 96 Room Air 10/17/24 10:20 97 Room Air 10/17/24 10:10 97 Room Air 10/17/24 10:00 100 Oxymask 3 10/17/24 09:50 98 Oxymask 6 10/17/24 05:41 100 Room Air
[2024-10-17] MEDS: TRANEXAMIC ACID / 0.7% NACL 1,000 MG/100 ML BAG IV SCH (16:32)
[2024-10-17] MEDS: ONDANSETRON INJ 2 MG/ML 2 ML VIAL IV PRN (16:47)
[2024-10-17] MEDS: ALPRAZolam 0.5 MG TABLET PO SCH (20:21)
[2024-10-17] MEDS: traMADol HCL 50 MG TABLET PO PRN (20:21)
[2024-10-17] MEDS: DOCUSATE SODIUM 100 MG CAP PO SCH (20:21)
[2024-10-17] MEDS: SENNA 8.6 MG TAB PO SCH (20:22)
--- OUTSIDE RECORDS SUMMARY | 2024-10-17 23:27 | External Medical Summary | Continuity of Care Document ---
Author Name Unknown Organization [id number] Address [address] [place] [id number] Care Team Providers Care Inspector Returned Materials Name Role Phone Gaye Amin Primary Care Physician [phone] Encounter [facility] [id number] Date(s): 09/25/24 - 09/25/24 [facility] [address] [id number] [facility] Medicine [address] [place] [id number] Encounter Diagnosis Right knee DJD(Discharge Diagnosis) - 09/25/24 Left knee DJD(Discharge Diagnosis) - 09/25/24 S/P total knee arthroplasty(Discharge Diagnosis) - 09/25/24 Discharge Disposition: Home or Self Care Attending Physician: KWAN Cotton, Jessica Damon Referring Physician: MD Oren, Dereje Calderón Allergies, Adverse Reactions, Alerts Substance Criticality Severity Reaction Reaction Severity Status codeine crawling skin Active sulfa drugs Active Allergy Not found in Search parlodel, pt becomes nauseous Active Medications ALPRAZolam 2 mg oral tablet Start: 07/06/17 4:05:45 PM EDT, 1 tab, PO, bid, Disp# 60 tab, Refills: 5, call or fax to [facility] [address] [employer] [address] [facility] Start Date: 07/06/17 Status: Ordered Eliquis 2.5 mg oral tablet Start: 09/25/24 11:06:00 AM EST, 1 tab, PO, bid, Disp# 28 tab, Refills: 1, [id number], Earliest Fill Date: 09/25/24 Start Date: 09/25/24 Stop Date: 11/02/24 Status: Ordered levothyroxine 150 mcg (0.15 mg) oral tablet Start: 05/04/16 2:03:04 PM EDT, See Instructions, Disp# 90, Refills: 2, take 1 tablet by mouth once daily, [id number], take 1 tablet by mouth once daily Start Date: 05/04/16 Status: Ordered oxyCODONE 5 mg oral tablet Start: 09/25/24 11:08:00 AM EST, See Instructions, Disp# 18 tab, Refills: 0, 1-2 tabs po every 4-6 hours, Note to Pharmacy: initial therapy, PRN: as needed for pain, Stop: 10/20/24 11:12:00 AM EST, [id number], Earliest Fill Date: 09/25/24 Start Date: 09/25/24 Stop Date: 10/20/24 Status: Ordered traMADol 50 mg oral tablet Start: 09/25/24 11:08:00 AM EST, See Instructions, Disp# 18 tab, 1-2 tabs po every 4-6 hours, Note to Pharmacy: initial therapy, PRN: as needed for pain, Stop: 10/20/24 11:11:00 AM EST, [facility]: [id number], Earliest Fill Date: 09/25/24 Start Date: 09/25/24 Stop Date: 10/20/24 Status: Ordered Zofran ODT 4 mg oral tablet, disintegrating Start: 09/25/24 11:07:00 AM EST, 1 tab, PO, q6h, Disp# 20 tab, Refills: 1, PRN: nausea and vomiting, [facility]acy: [id number] Start Date: 09/25/24 Status: Ordered Mental Status 09/25/24 Barriers to Learning one year None evide nt Mandatory Health Literacy Documentation Yes Health Literacy Communication Barriers N ever Primary Language Serbian Problem List Condition Confirmation Course Effective Dates Status H ealth Status Informant Anxiety Confirmed Active Degenerative arthritis of knee, bilateral Confirmed Active Lumbar disc displacement without myelopathy 1 Confirmed 2011 Active Enlarged thyroid Confirmed Active S/P knee replacement Confirmed Active Hyperlipidemia Confirmed Active Hypothyroidism Confirmed Active Anemia, iron deficiency Confirmed Active Abnormal mammogram Confirmed Active Right knee DJD Confirmed Active Chronic insomnia Confirmed Active Post-menopause Confirmed Active Weight disorder Confirmed Active 1L4-5 vertebra out Diagnosis Diagnosis Type Effective Dates Health Status Clinical Service Informant Left knee DJD Discharge Diagnosis 09/25/24 Non-Specified S/P total knee arthroplasty Discharge Diagnosis 09/25/24 Non-Specified Right knee DJD Discharge Diagnosis 09/25/24 Procedures Procedure Date Related Diagnosis Body Site Status Total prosthetic arthroplast y of left knee 02/29/24 Completed Ultrasound of the kidneys 08/03/16 Completed Mammography; unilateral 1 07/23/15 Completed Ultrasound, breast, unilater al, real time with image documentation, including axilla when performed; limited 2 07/23/15 Completed Mammogram 3 07/22/15 Completed Mammogram 4 07/03/13 Completed Papanicolaou smear 5 06/27/13 Comp leted Endometrial biopsy 6 07/30/10 Comp leted Cholecystectomy 2009 Completed Mammogram 7 01/24/09 Completed Cystoscopy and [...] Most recent to oldest [Reference Range]: 1 Temperature [36.5-37.9 DegC] 36.6 DegC (09/25/24 10:32 AM) Heart Rate 80 bpm (09/25/24 10:32 AM) Blood Pressure 140/60mmHg (09/25/24 10:32 AM) Cuff Pulse Pressure 80 mmHg (09/25/24 10:32 AM) Social History Social History Type Response Smoking Status Never smoked cigaret jeet Sex Female Sex Representation Female (finding) Patient Care team information Care Team Personnel Name: MD Amin Tracy A Position: Referring Member Role: Primary Care Provider Address: [address] [place] [address] [place] Care Team Related Persons Name: FACUNDO GARCÍA
[2024-10-18 03:15] VITALS: TEMP 98.1
[2024-10-18] MEDS: LEVOTHYROXINE SODIUM 175 MCG TABLET PO SCH (06:39)
[2024-10-18] MEDS: APIXABAN 2.5 MG TAB PO SCH (09:03)
[2024-10-18] MEDS: MULTIVITAMIN TAB PO SCH (09:03)
[2024-10-18] MEDS: dexAMETHasone 4 MG TAB PO SCH (09:03)
[2024-10-18 09:06] LABS: Hematocrit (blood only) 35.4 % (37.0-47.0); Mean Corpuscular Hemoglobin 28.6 pg (25.0-34.0); Mean Corpuscular Hgb Conc 33.9 g/dL (32.0-36.0); Mean Corpuscular Volume 84.3 fL (80.0-100.0); Mean Platelet Volume 10.3 fL (9.4-12.4); Platelet Count 177 K/uL (130-400); RDW Coefficient of Variation 12.3 % (11.5-14.5); RDW Standard Deviation 37.2 fL (36.4-46.3); White Blood Count 11.45 K/ul (4.8-10.8)
[2024-10-18 09:25] LABS: Calcium 9.1 mg/dl (8.6-10.3); Creatinine Clr Calc Pharmacy 62.5 ml/min; Potassium 4.5 mmol/L (3.5-5.1)
--- NOTE | 2024-10-18 10:43 | Orthopedic Progress Note ---
Date of Service October 18, 2024 Assessment & Plan (1) Status post knee replacement: Plan: White count likely elevated secondary to stress and steroids. Nurse reported no arrhythmias overnight. She should let her family doctor know about this as soon as possible to see if any further evaluations etc. are indicated. At this time she is stable for discharge. I think still needs to be seen by OT but expect that she does well. Her discharge instructions are given in terms of medications her follow-up bathing instructions wound care activity level home nursing and therapy medicines including blood thinners and pain pills. Limited activities with lots of rest and elevation discussed. She will follow-up as scheduled. If there is any problems with wound drainage fever swelling or any other issues please call my office. Plan X-rays are reviewed and show good positioning of total knee arthroplasty without complication. She is stable postoperatively. She will be monitored on the telemetry overnight. PT OT. Pain control postop antibiotics. Eliquis starting tonight. Surgical findings and results discussed. Admission and Anticipated Discharge Date Admission Date: October 17, 2024 Subjective Doing well. No problems reported. Less pain and better function than her previous surgery. She had 1 bout of emesis yesterday and otherwise has been doing very well. No tingling or numbness. She has not had any chest pains shortness of breath palpitations or racing heart. She has been seen by PT and has done very well.The nurse reports no arrhythmias overnight. Physical Exam Physical Exam: Dressing clean and dry. Straight leg raise without significant lag. DP and PT pulses are 1+ palpable with intact sensation and capillary refill less than 2 seconds. Minimal swelling of the foot she has 5 out of 5 ankle and toe plantarflexion dorsiflexion inversion and eversion strength. Results & Data Vital Signs (Past 12 Hours) Vital Signs Temp Pulse Pulse Resp BP Pulse Ox O2 Del Method 10/18/24 08:18 36.7 C 55 L 18 109/64 98 Room Air 10/18/24 07:17 62 10/18/24 03:14 36.7 C 63 16 93/51 L 96 Room Air 10/17/24 23:30 67 Laboratory Results Laboratory Results WBC 11.45 K/ul (4.8-10.8) H 10/18/24 08:14 RBC 4.20 M/uL (4.20-5.40) 10/18/24 08:14 Hgb 12.0 g/dl (12.0-16.0) 10/18/24 08:14 Hct 35.4 % (37.0-47.0) L 10/18/24 08:14 MCV 84.3 fL (80.0-100.0) 10/18/24 08:14 MCH 28.6 pg (25.0-34.0) 10/18/24 08:14 MCHC 33.9 g/dL (32.0-36.0) 10/18/24 08:14 RDW Std Deviation 37.2 fL (36.4-46.3) 10/18/24 08:14 RDW Coeff of Hector 12.3 % (11.5-14.5) 10/18/24 08:14 Plt Count 177 K/uL (130-400) 10/18/24 08:14 MPV 10.3 fL (9.4-12.4) 10/18/24 08:14 Sodium 138 mmol/L (136-145) 10/18/24 08:14 Potassium 4.5 mmol/L (3.5-5.1) 10/18/24 08:14 Chloride 105 mmol/L (98-107) 10/18/24 08:14 Carbon Dioxide 29 mmol/L (21-32) 10/18/24 08:14 Anion Gap 4 (3-11) 10/18/24 08:14 BUN 25 mg/dl (6-23) H 10/18/24 08:14 Creatinine 1.00 mg/dl (0.6-1.2) 10/18/24 08:14 Est Cr Clr Drug Dosing 62.5 ml/min 10/18/24 08:14 eGFR 64.49 10/18/24 08:14 BUN/Creatinine Ratio 25.0 (10-20) H 10/18/24 08:14 Glucose 102 mg/dl (70-99(Fasting)) H 10/18/24 08:14 POC Glucose 100 mg/dl (70-99) H 10/17/24 05:34 Calcium 9.1 mg/dl (8.6-10.3) 10/18/24 08:14 Impressions Knee X-Ray 10/17/24 09:58 XR knee RT 1 or 2V routine CLINICAL HISTORY: Surgical Post Op TECHNIQUE: 2 views of the right knee were obtained. Comparison: Comparison is made to leg length radiograph 02/02/2024 FINDINGS: Patient is status post total knee arthroplasty with expected postsurgical changes including soft tissue swelling and subcutaneous emphysema. No periarticular lucency or hardware fracture is seen. IMPRESSION: Expected postoperative appearance status post placement of total knee arthroplasty. ACT 112: Negative or not required by law. Electronically signed by: Everton Prajapati M.D. 10/17/2024 10:23 AM
--- NOTE | 2024-10-18 11:08 | Discharge Summary ---
Date of Service October 18, 2024 Principal Diagnosis s/p right knee total arthroplasty Discharge Data Allergies Allergy/AdvReac Type Severity Reaction Status Date / Time adhesive Allergy Unknown Redness of Verified 10/17/24 05:39 Skin fluconazole [From Diflucan] Allergy Unknown Hives Verified 10/17/24 05:39 nitrofurantoin Allergy Unknown Hives Verified 10/17/24 05:39 [From Macrobid] Sulfa (Sulfonamide Allergy Unknown Rash Verified 10/17/24 05:39 Antibiotics) codeine AdvReac Unknown "skin Verified 10/17/24 05:39 [From Tylenol-Codeine] crawls" Procedures Performed Operation Date: 10/17/24 07:00 Actual Procedures p Right Total Knee Arthroplasty(Right) - Dereje Lott MD Hospital Course (1) Status post knee replacement: Mary underwent a right total knee arthroplasty on 10/17/[address] Lott. She was observed overnight in the hospital, had one episode of emesis, but nothing more. No arrhythmias were appreciated overnight. Received 24 hours of antibiotics. Her pain was well controlled. Her postoperative x-ray demonstrated expected findings. Postop labs showed a mild elevated white blood cell count at 11.45 likely secondary to surgery and steroids. No concerns remainder of labs. She was evaluated by PT and OT and cleared for discharge. She felt comfortable to be discharged home. Evaluated by Dr. Lott on day of discharge. Instructions were reviewed in detail. Will be discharged home with pain medication, antiemetics, and Eliquis. These were previously sent and she already has them. She has home health scheduled for the next 2 weeks. Follow up appointment scheduled with Dr. Lott on 10/30/2024. Total Time Total Time Spent Total Time Spent (In Minutes): 15 Discharge Plan Discharge Items Patient Disposition: Home - Self-Care Reason For Visit: Right Knee Osteoarthritis Discharge Diagnosis: s/p right knee total arthroplasty Condition on Discharge: Good Activity: Per Instructions section Non-emergency contact: Surgeon Call non-emergency contact if: your pain is not controlled, your pain is worsening, you have a fever, your wound has increased drainage and your wound pain has increased Follow-up/Referrals: Gaye Amin MD [Primary Care Provider] - Dereje Lott MD [Surgeon] - 10/30/24 12:00 pm Diet: Regular Addtl Attending Provider Instructions: Your handicap placard is available for pickup at our dental front office assistant at the office. You can pick it up after discharge New Medicine: * You will likely be taking one or more of these medications: 1. Eliquis 2.5 mg twice daily. You will be on this for 2-4 weeks after surgery. Do not take NSAIDS (ibuprofen, aleve, advil) while on Eliquis Aspirin, 81 mg is OK. 2. oxycodone - Take 1-2 tablets every 4-6 hours as needed for pain. Take for severe pain, alternate with Tramadol 3. Tramadol - Take, 1-2 tablets every 4-6 hours as needed for pain. Take for mild-moderate pain. Alternate with Oxycodone. 4. Colace & Senokot - Take to prevent constipation which can be caused by narcotics. These can be bought [id number] at the pharmacy 5. Tylenol - extra strength, take 2 tablets (1000mg) every 8 hours to control your pain. Do this consistently for the first 3-7 days, then as needed. 6. Zofran 4mg every 4-6 hours as needed for post operative nausea and vomiting. * The most common side effects of pain medicine and iron are nausea and constipation. If nausea or constipation is too much of a problem or if you have any questions about your new medicines or doses, call [facility] at . We will try to help you manage these issues. "VERY IMPORTANT TO READ AND REVIEW" Blood Clots and Blood Thinning Medicine: * You are given Eliquis during the immediate post-operative period to lessen the risk of blood clots forming in your legs and/or lungs. Eliquis is usually given for 2-[address] Lott will let you know when to stop taking it. Once completed you it may be recommended to take Aspirin 325mg twice daily for another 2-4 weeks. Physical Therapy: * Do your physical therapy at home. These are the exercises you learned while in the hospital (quad sets, leg raises, calf pumps, gluteal squeezes, knee bending, and heel props.) You should do these exercises 3-4 times per day. * You will either go to inpatient rehab ([facility]), home with Home Therapy and nursing or home with outpatient rehab. You should do rehab with the therapist 2-3 times per week. You should do therapy on your own daily. * You may bear full weight on your leg with crutches or walker unless otherwise advised. Home Exercise: * You were shown a series of exercises (heel props, heel slides, etc.) in the hospital. Do these exercises three to four times each day including the exercises you were shown in physical therapy. Walking: * You may be up for short periods of time. Standing and walking for 1-2 hours at a time is usually okay. You should not stand or walk for excessive periods of time as this may Cause increased pain and swelling. SELF CARE INSTRUCTIONS AFTER TOTAL KNEE REPLACEMENT A. You may need to continue a physical therapy program after discharge from the hospital. There are several options available to you. Your doctor will assist you in selecting the best one for you. 1. An out-patient facility 2 to 3 times a week for therapy or home therapy. 2. Continue working on all exercises taught to you in the hospital. Your goals should be to increase bending of your knee to 90 degrees and beyond and to fully straighten your knee. B. Your therapist will notify you when you are able to progress from a walker to a cane. C. Wear TEDS as much as possible.~ They may be removed at night for laundering. D. Do not place a pillow behind your knee when resting. A pillow at your ankle, or behind your calf is okay. E. Ice your knee 15-20 minutes every 2-3 hours and elevate it above the level of your heart. F. You may shower on the fourth day after surgery using regular soap and water. Do not submerge until the wound is completely healed (approximately 2 weeks). Until the fourth day after surgery, cover the incision/bandage with a bag or plastic wrap. G. Anyone who is touching your surgical incision area should wash their hands and wear gloves. H. Keep your incision covered with gauze pads under the ARLEEN hose until it is dry. VERY IMPORTANT TO READ AND REVIEW A. There are a few signs you need to watch for after you are home. Call [facility] if you notice any of the followin. Increased severe knee pain. Some pain is expected especially when you exercise. 2. Increased swelling in your leg or knee; pain or swelling of the calf muscle in either lower leg. 3. Any fluid drainage from the incision. 4. Shortness of breath or chest pain. 5. Numbness and tingling in the surgical extremity B. Please call [facility] at if you have any concerns or questions about your operation or recovery. The doctor or his nurse will return your call promptly. C. Do not have any elective dental work or other elective procedures done for 6 weeks after your knee replacement. When you have any invasive procedure (dental cleaning, extraction, colonoscopy etc) performed, you will need to take antibiotics to prevent infection from developing in your artificial joint. Tell your other health care providers you have an artificial joint. My office will supply you with further information and the antibiotics. Call your doctor if: * Temperature above 101 degrees F. * Pain not relieved by pain medicine ordered. * Increased drainage or redness from incision. * Notify your doctor with any questions or concerns. Follow-up Visit: You will follow-up with Dr. Lott 10-14 days after surgery. The office number is . Avoid all tobacco products. If you need help to stop smoking, call [facility] FREE QUITLINE at . This is a free call. Call the office if there are any problems with the wound vac, or if you have any other questions The home health nurse can remove the wound vac next Wednesday when treatment is completed. Pending Studies at Discharge: No Stand-Alone Forms: My [facility], Smoking Cessation Medications and DC Order Prescriptions: New acetaminophen [Tylenol Extra Strength] 500 mg Tablet 1,000 mg PO Q8 Qty: 30 0RF Eliquis 2.5 mg Tablet 2.5 mg PO BID Qty: 28 0RF docusate sodium 100 mg Capsule 100 mg PO BID Qty: 30 0RF sennosides [Senokot] 8.6 mg Tablet 17.2 mg PO HS Qty: 30 0RF oxycodone 5 mg Tablet 5 - 10 mg PO Q4H PRNQty: 18 0RF tramadol 50 mg Tablet 50 - 100 mg PO Q4H PRNQty: 18 0RF Continued levothyroxine 175 mcg Tablet 175 mcg PO QAM alprazolam 1 mg Tablet 1 mg PO HS Patient Comments: 1/2 tab Discharge Orders: Discharge Order (Routine); Ordered 10/18/24 Ordered By: Kenney Pavon Admission Data Admit Date/Time: 10/17/24 09:58 Attending Provider: Dereje Lott Admit Provider: Dereje Lott Primary Care Provider: Gaye Amin
[2024-10-18 11:38] VITALS: RESP 20; O2SAT 97
[2024-10-18 12:13] VITALS: BP 141/70; PULSE 67
[2024-10-18] MEDS: CeleBREX 200 MG CAP PO SCH (12:37)
== END 2024-10-18 12:46 | disposition home or self-care (01) ==
LOC: ASU 05:07 → 2N 05:07